=== PATIENT | female | born 1995 | race Caucasian/White ===

== ENCOUNTER 2019-01-10 19:06 | Emergency (ER) | payer SELFPAY ==
[~2019-01-10] VITALS: Ht 157.5 cm; Wt 52.2 kg
[2019-01-10] MEDS ORDERED: IV NORMAL SALINE 1000ML BAG 1,000 ML IV ONE (19:30)
[2019-01-10 19:38] LABS: BASO % 1 % (0-3); EOS # 0.2 x10^3/uL (0.0-0.7); EOS % 3 % (0-3); HEMATOCRIT 35.8 % (36.0-47.0); LYMPH # 1.6 x10^3/uL (1.0-4.8); LYMPH % 29 % (24-48); MEAN CORPUSCULAR HEMOGLOBIN 28 pg (25-35); MEAN CORPUSCULAR HGB CONC 34 g/dL (31-37); MEAN CORPUSCULAR VOLUME 85 fL (79-100); MONO # 0.6 x10^3/uL (0.0-1.1); MONO % 12 % (0-9); NEUT % 55 % (31-73); PLATELET COUNT 174 x10^3/uL (140-400); RED BLOOD COUNT 4.23 x10^6/uL (3.50-5.40); RED CELL DISTRIBUTION WIDTH 13.9 % (11.5-14.5); WHITE BLOOD COUNT 5.5 x10^3/uL (4.0-11.0)
[2019-01-10 19:46] LABS: BARBITURATES NEG (NEG); BENZODIAZEPINES NEG (NEG); CANNABINOIDS NEG (NEG); COCAINE NEG (NEG); METHADONE NEG (NEG); OPIATES NEG (NEG); PHENCYCLIDINE NEG (NEG)
[2019-01-10 19:46] LABS: CALCIUM 8.9 mg/dL (8.5-10.1); CREATININE 0.8 mg/dL (0.6-1.0); GFR 89.7; POTASSIUM 3.6 mmol/L (3.5-5.1)
[2019-01-10 19:47] LABS: AMPHETAMINE/METHAMPHETAMINE POS (NEG)
[2019-01-10 19:52] LABS: ALBUMIN/GLOBULIN RATIO 1.1 (1.0-1.7); MAGNESIUM 2.1 mg/dL (1.8-2.4); TOTAL BILIRUBIN 0.5 mg/dL (0.2-1.0); TOTAL PROTEIN 7.6 g/dL (6.4-8.2)
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
[2019-01-10 21:12] LABS: U PREG PATIENT NEGATIVE (NEG)
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
[2019-01-10 23:00] VITALS: BP 132/62
--- NOTE | 2019-01-11 08:30 | EKG ---
[facility] [address] [place] [address] Test Date: 2019-01-10 Test Time: 19:23:03 Pat Name: IRAM MEJÍA Department: Room: Gender: F Prestidigitator: : 1995 Requested By: DILIP VILLANUEVA Order Number: [id number] Reading MD: Ezio Brar MD Measurements Intervals [place] Rate: 115 P: 48 IA: 124 QRS: -9 QRSD: 86 T: 29 QT: 348 QTc: 483 Interpretive Statements SINUS TACHYCARDIA Electronically Signed On 01-14-2019 15:53:49 CDT by Ezio Brar MD
== END 2019-01-10 23:07 | disposition home or self-care (01) ==
LOC: ER 19:06
DX: F41.9 Anxiety disorder, unspecified (principal); F15.20 Other stimulant dependence, uncomplicated; H57.12 Ocular pain, left eye; M54.2 Cervicalgia; R51 Headache
CPT/HCPCS: 36415; 70450; 72125; 80053; 80307; 81025; 82550; 83605; 83735; 85025; 93005; 99284; G0480; J7030